=== PATIENT | male | born 1955 | race Hispanic/Latino ===

== ENCOUNTER 2020-07-17 07:26 | Outpatient (CLI) | payer BC | END 2020-07-17 07:27 | disposition home or self-care (01) | LOC: CSHULT 07:26 | PROVIDERS: ATTEND Nurse Practitioner Family | DX: M79.89 Other specified soft tissue disorders (principal); R22.42 Localized swelling, mass and lump, left lower limb ==

== ENCOUNTER 2023-11-02 06:20 | Day surgery (SDC) | payer MEDICARE ==
[2023-11-02] MEDS ORDERED: CEFAZOLIN 1 GM VIAL ONE (06:46)
[2023-11-02] MEDS ORDERED: Gentamicin 80 MG/2 ML VIAL ONE ×3 (06:46→06:47)
[2023-11-02 07:06] LABS: #Basophils 0.04 10x3/uL (0.0-0.2); #Eosinphils 0.13 10x3/uL (0.0-0.5); #Monocytes 0.42 10x3/uL (0.0-1.1); #Neutrophils 4.32 10x3/uL (1.5-8.4); %Basophils 0.6 % (0.0-2.0); %Eosinophils 1.9 % (0.0-6.0); %Lymphocytes 29.6 % (18.0-47.0); %Neutrophils 61.5 % (40.0-75.0); Hematocrit 45.3 % (38.8-50.0); Hemoglobin 15.5 g/dL (13.5-17.5); Mean Corpuscular HGB CONC 34.2 g/dL (32.0-36.0); Mean Corpuscular Hemoglobin 29.9 pg (27.0-33.0); Mean Corpuscular Volume 87.5 fL (81.2-95.1); Mean Platelet Volume 9.8 fL (7.4-10.4); Platelet Count 336 10x3/uL (150-450); RBC Distribution Width 12.3 % (11.5-14.5); Red Blood Cell (RBC) Count 5.18 10x6/uL (4.32-5.72)
[2023-11-02 07:08] VITALS: BP 157/101; TEMP 98.8
[2023-11-02 07:17] LABS: INR-International Normal Ratio 1.1; PTT 32.6 sec (22.0-33.0); Prothrombin Time 11.4 sec (9.5-12.1)
[2023-11-02 07:19] LABS: Anion Gap 13 mmol/L (10-20); BUN (Urea Nitrogen) 11 mg/dL (8.4-25.7); Calc. Creatinine Clearance 96 mL/min (70-130); Calcium 9.6 mg/dL (7.8-10.44); Carbon Dioxide 25 mmol/L (23-31); Chloride 106 mmol/L (98-107); Estimated GFR 95; Glucose 97 mg/dL (80-115); Potassium 4.3 mmol/L (3.5-5.1); Sodium 140 mmol/L (136-145)
[2023-11-02] MEDS ORDERED: Midazolam HCl 2 mg/2 ml Vial ONE ×2 (07:38→08:13)
[2023-11-02] MEDS ORDERED: fentaNYL 50 mcg/mL 1 mL Vial ONE ×2 (07:38→08:17)
[2023-11-02] MEDS ORDERED: Atropine Sulfate 1 mg/1 ml Vial ONE (07:40)
[2023-11-02] MEDS ORDERED: Lidocaine 1% (PF) 30 ML VIAL ONE ×2 (08:06→08:12)
[2023-11-02] MEDS ORDERED: Iopamidol 300 61% 100 ML VIAL FS ONE (09:19)
== END 2023-11-02 10:27 | disposition home or self-care (01) ==
LOC: CSHSDC 06:20
PROVIDERS: ATTEND Specialist
PROC: 0JH606Z Insertion of Pacemaker, Dual Chamber into Chest Subcutaneous Tissue and Fascia, Open Approach (ICD-10-PCS; principal; 2023-11-02)
DX: I47.10 Supraventricular tachycardia, unspecified (principal); I49.5 Sick sinus syndrome; I45.5 Other specified heart block; E78.5 Hyperlipidemia, unspecified; I35.0 Nonrheumatic aortic (valve) stenosis; E78.2 Mixed hyperlipidemia; Z95.818 Presence of other cardiac implants and grafts
CPT/HCPCS: 33208; 71045; 80048; 85025; 85610; 85730; C1785; C1898 ×2; J0461; J0690; J1580; J2001; J2250; J3010; 99152; 99153; Q9967